=== PATIENT | female | born 1965 | race American Indian/Alaskan Native ===

== ENCOUNTER 2019-09-30 03:30 | Emergency (ER) | payer SELFPAY ==
[2019-09-30 03:35] VITALS: BP 146/86
[2019-09-30] MEDS ORDERED: dexAMETHasone 4 MG/ML VIAL IM ONE (03:50)
[2019-09-30] MEDS ORDERED: IPRATROPIUM 0.02% NEBU 2.5 ML IH ONE ×2 (03:50→05:27)
[2019-09-30] MEDS ORDERED: ALBUTEROL 2.5 MG/3 ML NEBU IH ONE ×2 (03:50→05:27)
--- NOTE | 2019-09-30 04:01 | Emergency Department Report ---
ED General Adult HPI - General Chief complaint: Dyspnea/Respdistress Stated complaint: ASTHMA ROBBIE Time Seen by Provider: 09/30/19 03:45 Source: patient Mode of arrival: Ambulatory Limitations: No Limitations - History of Present Illness Initial comments: Patient is a 53-year-old female presents emergency room with complaints of a dry cough that began 2 days ago. She has associated shortness of breath and wheezing. She denies any rhinorrhea, congestion, fever, productive cough, leg swelling, chest pain. She states she has a past medical history of asthma, diabetes, hypertension. She states that she has been using her albuterol inhaler without much relief. She states that at 8 PM last night she used her grandkids nebulizer treatment and used 2 vials. - Related Data Home Medications Medication Instructions Recorded Confirmed Last Taken Lisinopril [Zestril TAB] 40 mg PO QDAY 09/01/13 09/01/13 Unknown Previous Rx's Medication Instructions Recorded Last Taken Type Aspirin 325 mg PO QDAY #30 tablet 09/03/13 Unknown Rx Lisinopril [Zestril TAB] 40 mg PO QDAY #90 tablet 09/03/13 Unknown Rx hydroCHLOROthiazide [HCTZ] 25 mg PO QDAY #90 tablet 09/03/13 Unknown Rx ALBUTEROL Inhaler (OR & NICU) 2 puff IH QID PRN #8.5 gram 09/30/19 Unknown Rx [ProAir HFA Inhaler] Albuterol Sulfate [Albuterol 0.63% 0.63 mg IH TID PRN #1 box 09/30/19 Unknown Rx NEBS] DOXYCYCLINE Hyclate [Vibramycin 100 mg PO BID 7 Days #14 capsule 09/30/19 Unknown Rx CAP] predniSONE [Deltasone] 20 mg PO DAILY 9 Days #18 tablet 09/30/19 Unknown Rx Allergies Allergy/AdvReac Type Severity Reaction Status Date / Time Penicillins Allergy Rash Verified 09/01/13 11:22 ED Review of Systems ROS: Stated complaint: ASTHMA ROBBIE Other details as noted in HPI Comment: All other systems reviewed and negative ED Past Medical Hx - Past Medical History Previous Medical History?: Yes Hx Hypertension: Yes (2007) Hx Congestive Heart Failure: No Hx Diabetes: No Hx Asthma: Yes Hx COPD: No Additional medical history: History of diabetes which is now resolved - Surgical History Past Surgical History?: Yes Hx Cholecystectomy: Yes - Social History Smoking Status: Never Smoker Substance Use Type: Alcohol - Medications Home Medications: Home Medications Medication Instructions Recorded Confirmed Last Taken Type Lisinopril [Zestril TAB] 40 mg PO QDAY 09/01/13 09/01/13 Unknown History Aspirin 325 mg PO QDAY #30 tablet 09/03/13 Unknown Rx Lisinopril [Zestril TAB] 40 mg PO QDAY #90 tablet 09/03/13 Unknown Rx hydroCHLOROthiazide [HCTZ] 25 mg PO QDAY #90 tablet 09/03/13 Unknown Rx ALBUTEROL Inhaler (OR & NICU) 2 puff IH QID PRN #8.5 gram 09/30/19 Unknown Rx [ProAir HFA Inhaler] Albuterol Sulfate [Albuterol 0.63% 0.63 mg IH TID PRN #1 box 09/30/19 Unknown Rx NEBS] DOXYCYCLINE Hyclate [Vibramycin 100 mg PO BID 7 Days #14 capsule 09/30/19 Unknown Rx CAP] predniSONE [Deltasone] 20 mg PO DAILY 9 Days #18 tablet 09/30/19 Unknown Rx ED Physical Exam - General Limitations: No Limitations General appearance: alert, in no apparent distress - Head Head exam: Present: atraumatic, normocephalic - Eye Eye exam: Present: normal appearance - ENT ENT exam: Present: mucous membranes moist - Respiratory Respiratory exam: Present: wheezes (bilaterally), prolonged expiratory. Absent: respiratory distress, rales, rhonchi, stridor, chest wall tenderness, accessory muscle use, decreased breath sounds - Cardiovascular Cardiovascular Exam: Present: regular rate, normal rhythm, normal heart sounds. Absent: systolic murmur, diastolic murmur, rubs, gallop - Neurological Exam Neurological exam: Present: alert, oriented X3 - Psychiatric Psychiatric exam: Present: normal affect, normal mood - Skin Skin exam: Present: warm, dry, intact ED Course Vital Signs 09/30/19 09/30/19 09/30/19 03:32 03:33 04:00 Temperature 99.3 F 99.3 F Pulse Rate 106 H 109 H Pulse Rate [ 130 H Posterior Bilateral Throughout] Respiratory 20 20 22 Rate Respiratory 38 H Rate [Posterior Bilateral Throughout] Blood Pressure 146/86 146/86 O2 Sat by Pulse 96 96 Oximetry 09/30/19 06:03 Temperature Pulse Rate Pulse Rate [ 99 H Posterior Bilateral Throughout] Respiratory Rate Respiratory 20 Rate [Posterior Bilateral Throughout] Blood Pressure O2 Sat by Pulse Oximetry ED Medical Decision Making - Lab Data Result diagrams: 09/30/19 05:31 09/30/19 05:31 - Radiology Data Radiology results: report reviewed CHEST 2 VIEWS INDICATION: cough, SOB, wheezing. COMPARISON: None. FINDINGS: Support devices: None. Heart: Within normal limits. Lungs/Pleura: Left lung clear. Mild right middle lobe infiltrate. No significant pleural effusion. IMPRESSION: Right middle lobe pneumonia. Signer Name: Elie Soliz MD Signed: 09/30/2019 4:37 AM Workstation Name: [id number] Transcribed By: ES Dictated By: Elie Soliz MD Electronically Authenticated By: Elie Soliz MD Signed Date/Time: 09/30/19436 DD/ 4 TD/TT: - Medical Decision Making Patient is a 53-year-old female presents emergency room with complaints of a dry cough that began 2 days ago. She has associated shortness of breath and wheezing. She denies any rhinorrhea, congestion, fever, productive cough, leg swelling, chest pain. She states she has a past medical history of asthma, diabetes, hypertension. She states that she has been using her albuterol inhaler without much relief. She states that at 8 PM last night she used her grandkids nebulizer treatment and used 2 vials. Initial vitals with mild tachycardia otherwise normal. Labs are stable. On exam bilateral wheezing and prolonged expiratory. CXR: Right middle lobe pneumonia. Patient given continuous neb treatment, ceftriaxone, steroids. Patient also given Ativan due to appearing anxious. After medications, wheezing has improved. Patient ambulated with oxygen saturation monitor which stayed above 94% on room air whil e ambulating around the ED. she given prescription for doxycycline, steroids, nebulizer solution, albuterol inhaler. Advised patient Please take medication as prescribed. Follow-up with your primary care doctor in the next 2 days for reexamination. Please increase your fluid intake over the next several days. Return to the emergency room immediately for any new or worsening symptoms or symptoms are not improving. please monitor your blood sugars while taking steroids and if increasing too high may have to stop the steroids. - Differential Diagnosis PNA, asthma, URI, viral syndrome, bronchitis, COPD Critical care attestation.: If time is entered above; I have spent that time in minutes in the direct care of this critically ill patient, excluding procedure time. ED Disposition Clinical Impression: CAP (community acquired pneumonia) Qualifiers: Laterality: right Lung location: middle lobe of lung Qualified Code(s): J18.9 - Pneumonia, unspecified organism Asthma exacerbation Qualifiers: Asthma severity: unspecified severity Asthma persistence: unspecified Qualified Code(s): J45.901 - Unspecified asthma with (acute) exacerbation Disposition: DC- TO HOME OR SELFCARE Is pt being admited?: No Does the pt Need Aspirin: No Condition: Stable Instructions: Asthma (ED), Community-acquired Pneumonia (ED) Additional Instructions: Please take medication as prescribed. Follow-up with your primary care doctor in the next 2 days for reexamination. Please increase your fluid intake over the next several days. Return to the emergency room immediately for any new or worsening symptoms or symptoms are not improving. please monitor your blood sugars while taking steroids and if increasing too high may have to stop the steroids. Prescriptions: Albuterol Sulfate [Albuterol 0.63% NEBS] 0.63 mg IH TID PRN #1 box PRN Reason: Wheezing predniSONE [Deltasone] 20 mg PO DAILY 9 Days #18 tablet ALBUTEROL Inhaler (OR & NICU) [ProAir HFA Inhaler] 2 puff IH QID PRN #8.5 gram PRN Reason: Shortness Of Breath DOXYCYCLINE Hyclate [Vibramycin CAP] 100 mg PO BID 7 Days #14 capsule Referrals: PRIMARY CARE, [Primary Care Provider] - 2-3 Days Time of Disposition: 06:50 Print Language: SLOVENIAN
--- NOTE | 2019-09-30 04:41 | XRay Report ---
CHEST 2 VIEWS INDICATION: cough, SOB, wheezing. COMPARISON: None. FINDINGS: Support devices: None. Heart: Within normal limits. Lungs/Pleura: Left lung clear. Mild right middle lobe infiltrate. No significant pleural effusion. IMPRESSION: Right middle lobe pneumonia. Signer Name: Elie Soliz MD Signed: 09/30/2019 4:37 AM Workstation Name: [id number]
[2019-09-30] MEDS ORDERED: LIDOCAINE-MPF (1%) 10 MG/1 ML VIAL 5 ML INFILTRATI ONE (04:42)
[2019-09-30] MEDS ORDERED: LORazepam 1 MG TAB PO ONE (05:27)
[2019-09-30 05:59] LABS: Basophils % (Auto) 0.7 % (0.0-1.8); Eosinophils % (Auto) 0.2 % (0.0-4.3); Hemoglobin 9.9 gm/dl (10.1-14.3); Lymphocytes # (Auto) 0.8 K/mm3 (1.2-5.4); Lymphocytes % (Auto) 12.3 % (13.4-35.0); Mean Corpuscular HGB Conc 32 % (30-34); Mean Corpuscular Volume 76 fl (79-97); Monocytes # (Auto) 0.2 K/mm3 (0.0-0.8); Monocytes % (Auto) 3.7 % (0.0-7.3); Platelet Count 230 K/mm3 (140-440)
[2019-09-30 06:15] LABS: BUN/Creatinine Ratio 6; Blood Urea Nitrogen 5 mg/dL (7-17); Calcium 8.2 mg/dL (8.4-10.2); Hemolysis Index 0
== END 2019-09-30 07:03 | disposition home or self-care (01) ==
LOC: ED 03:30
DX: J45.901 Unspecified asthma with (acute) exacerbation (principal); J18.1 Lobar pneumonia, unspecified organism; I10 Essential (primary) hypertension; Z88.0 Allergy status to penicillin; Z79.82 Long term (current) use of aspirin; Z79.899 Other long term (current) drug therapy; Z90.49 Acquired absence of other specified parts of digestive tract
CPT/HCPCS: 36415; 71046; 80048; 85025; 94640; 96372; 99284; J0696; J1100; 94644